=== PATIENT | female | born 1950 | race African-American/Black ===

== ENCOUNTER 2018-09-22 09:24 | Emergency (ER) | payer MEDICARE ==
[2018-09-22] MEDS ORDERED: ASPIRIN 81 MG TABLET, CHEWABLE PO ONE (09:41)
--- NOTE | 2018-09-22 09:44 | ER Document Report ---
ED General - General Stated Complaint: SHORTNESS OF BREATH Time Seen by Provider: 09/22/18 09:40 Primary Care Provider: KARINE KISER PA-C [Primary Care Provider] - Follow up as needed Cannot obtain history due to: Uncooperative Notes: 60-year-old female CHF presents with acute shortness of breath for 1 hour hypertensive tachypnea and hypoxic for EMS placed on BiPAP. History of coronary artery disease, but was supposed to have a bypass in [place] had a stroke. EMS has Nitropaste and IV access. - Related Data Allergies/Adverse Reactions: all cillins Allergy (Uncoded 09/22/18 10:41) Past Medical History - Social History Smoking Status: Never Smoker Family History: Reviewed & Not Pertinent Review of Systems - Review of Systems Notes: REVIEW OF SYSTEMS GEN: Denies fever, chills, weight loss ENT: Denies sore throat, nasal discharge, ear pain EYES: Denies blurry vision, eye pain, discharge CV: Chest pressure RESP: Shortness of breath GI: Denies abdominal pain, nausea, vomiting, diarrhea MSK: Denies joint pain/swelling, edema, SKIN: Denies rash, skin lesions LYMPH: Denies swollen glands/lymph nodes NEURO: Denies headache, focal weakness or numbness, dizziness PSYCH: Denies depression, suicidal or homicidal ideation PHYSICAL EXAMINATION General: In extremis quite ill-appearing Head: Atraumatic, normocephalic ENT: Mouth normal, oropharynx moist, no exudates or tonsillar enlargement Eyes: Conjunctiva normal, pupils equal, lids normal Neck: JVD, otherwise supple, no guarding CVS: Normal rate, regular rhythm, no murmurs Resp: Respiratory distress accessory muscle use tachypneic on BiPAP GI: Nondistended, soft, no tenderness to palpation, no rebound or guarding Ext: No deformities, no edema, normal range of motion in upper and lower ext Back: No CVA or midline TTP Skin: No rash, warm Lymphatic: No lymphadeopathy noted Neuro: Awake, alert. Face symmetric. GCS 15. Physical Exam - Vital signs Vitals: Temp 99.9 F 09/22/18 09:24 Course - Re-evaluation Re-evalutation: 09/22/18 09:43 Acute shortness of breath with hypoxia hypertension, likely CHF this patient/component edema. Differential includes valvular disease of acute [place]. Unlikely to be COPD. Placed on monitor. Given something with nitro as we transition her to our BiPAP. I also pushed to a mL's of Lasix which totals 400 mcg. Her pressure came down to 160. Nurse was obtained IV access. EKG was done to start show acute STEMI but is showing a bundle branch block with tachycardia. 09/22/18 11:42 Reassessed multiple times for at least 20 minutes total between 10 AM and 11:42 AM. Had to titrate back on the nitroglycerin once because of hypotension. 09/22/18 13:[address] Santiago from [facility] who accepted the patient, this occurred at approximately 12 PM. On reassessment with nitro drip backed off she is stable on FiO2 of 40 and BiPAP with good blood pressure around 110 and a normal heart rate. Her troponin is negative. She will be flown by helicopter to [facility]. - Vital Signs Vital signs: Temp Pulse Resp BP Pulse Ox 99.9 F 13 114/72 98 09/22/18 09:24 09/22/18 12:40 09/22/18 12:40 09/22/18 12:40 - Laboratory Result Diagrams: 09/22/18 09:40 09/22/18 09:40 Laboratory results interpreted by me: 09/22/18 09/22/18 09/22/18 09:40 09:40 09:40 RDW 14.9 H Lymphocytes % 47.4 H Est GFR (Non-Af Amer) 50 L Glucose 299 H NT-Pro-B Natriuret Pep 6100 H - Diagnostic Test Radiology reviewed: Image reviewed, Reports reviewed - EKG Interpretation by Mt EKG shows normal: Sinus rhythm. abnormal: ST-T Waves Rate: Tachycardia [place]/QRS: IVCD When compared to previous EKG there are: Previous EKG unavailable Procedures - Additional Procedures IV insertion Time performed: 09:40 - Left external jugular vein performed by physician Additional Procedures: IV insertion Critical Care Note - Critical Care Note Total time excluding time spent on procedures (mins): 71 Comments: The above patient is critically ill. Not including procedures, but including direct re-evaluations, speaking with patient and/or consultants, interpreting results, and documenting, I spent the total amount of minute listed listed above on critical care time Discharge - Discharge Clinical Impression: Acute pulmonary edema, Hypertensive emergency Condition: Critical Disposition: [facility] Referrals: KARINE KISER PA-C [Primary Care Provider] - Follow up as needed
[2018-09-22] MEDS ORDERED: NITROGLYCERIN 0.4 MG/TAB 25 TAB/BOTTLE SL ONE (09:45)
[2018-09-22 09:56] LABS: ABSOLUTE EOSINOPHILS # (AUTO) 0.2 10^3/uL (0.0-0.6); ABSOLUTE LYMPHOCYTES (AUTO) 2.3 10^3/uL (0.5-4.7); ABSOLUTE MONOCYTES (AUTO) 0.2 10^3/uL (0.1-1.4); ABSOLUTE NEUT (AUTO) 2.1 10^3/uL (1.7-8.2); BASOPHILS % (AUTO) 0.8 % (0-2); EOSINOPHILS % (AUTO) 4.8 % (0-6); HEMATOCRIT 38.4 % (36.0-47.0); HEMOGLOBIN 12.4 g/dL (12.0-15.5); LYMPHOCYTES % (AUTO) 47.4 % (13-45); MEAN CORPUSCULAR HEMOGLOBIN 29.7 pg (27.0-33.4); MEAN CORPUSCULAR HGB CONC 32.2 g/dL (32.0-36.0); MEAN CORPUSCULAR VOLUME 92 fl (80-97); MONOCYTES % (AUTO) 4.2 % (3-13); PLATELET COUNT 203 10^3/uL (150-450); RED BLOOD COUNT 4.16 10^6/uL (3.72-5.28); RED CELL DISTRIBUTION WIDTH 14.9 % (11.5-14.0); SEGMENTED NEUTROPHILS % (AUTO) 42.8 % (42-78); TOTAL CELLS COUNTED % (AUTO) 100 %; WHITE BLOOD COUNT 4.8 10^3/uL (4.0-10.5)
[2018-09-22 10:09] LABS: ANION GAP 14 (5-19); BLOOD UREA NITROGEN 19 mg/dL (7-20); CALCIUM 8.5 mg/dL (8.4-10.2); CARBON DIOXIDE 23 mmol/L (22-30); CHLORIDE 105 mmol/L (98-107); GLUCOSE 299 mg/dL (75-110); POTASSIUM 4.1 mmol/L (3.6-5.0); SODIUM 142.2 mmol/L (137-145)
[2018-09-22] MEDS ORDERED: MORPHINE SULFATE 10 MG/ML INJ IV ONE (10:19)
[2018-09-22] MEDS ORDERED: NITROGLYCERIN/D5W 50 MG/250 ML RTUINJ IV PRN (10:19)
[2018-09-22 10:20] LABS: TROPONIN I 0.031 ng/mL
--- NOTE | 2018-09-22 10:50 | RADIOLOGY REPORT (SQ) ---
EXAM DESCRIPTION: CHEST SINGLE VIEW COMPLETED DATE/TIME: 09/22/2018 10:23 am REASON FOR STUDY: CHF COMPARISON: None. EXAM PARAMETERS: NUMBER OF VIEWS: One view. TECHNIQUE: Single frontal radiographic view of the chest acquired. RADIATION DOSE: NA LIMITATIONS: None. FINDINGS: LUNGS AND PLEURA: Basilar and perihilar predominant interstitial and alveolar opacities. No large effusion. No pneumothorax. MEDIASTINUM AND HILAR STRUCTURES: No masses. Contour normal. HEART AND VASCULAR STRUCTURES: Enlarged cardiac silhouette. Ectatic atherosclerotic thoracic aorta. BONES: No acute bony abnormality. HARDWARE: None in the chest. OTHER: No other significant finding. IMPRESSION: Findings compatible with CHF with enlarged cardiac silhouette and pulmonary edema. No l arge effusion. TECHNICAL DOCUMENTATION: JOB ID: [id number] [employer]- All Rights Reserved Reading location - IP/workstation name: [email or web address]
[2018-09-22] MEDS ORDERED: ONDANSETRON HCL INJ/PF 4 MG/2 ML SDV IV ONE (11:49)
[2018-09-22 16:48] VITALS: BP 127/72
--- NOTE | 2018-09-22 19:47 | EKG REPORT ---
SEVERITY:- ABNORMAL ECG - SINUS OR ECTOPIC ATRIAL TACHYCARDIA IVCD, CONSIDER ATYPICAL RBBB LVH WITH SECONDARY REPOLARIZATION ABNORMALITY : Confirmed by: Aaliyah Mackey MD 22-Sep-2018 19:45:50
== END 2018-09-22 13:03 | disposition short-term general hospital (02) ==
LOC: ER 09:24
DX: I16.1 Hypertensive emergency (principal); I10 Essential (primary) hypertension; J81.0 Acute pulmonary edema; R09.02 Hypoxemia; R06.02 Shortness of breath; I25.10 Atherosclerotic heart disease of native coronary artery without angina pectoris; R00.0 Tachycardia, unspecified; I45.4 Nonspecific intraventricular block
CPT/HCPCS: 93005; 99291; 96375; 96365; 96366; 36415; 85025; 80048; 84484; 83880; 71045; 93010; A9270; J2270; J2405; J3490